=== PATIENT | female | born 1990 | race Caucasian/White ===

== ENCOUNTER 2019-01-21 07:00 | Inpatient (IN) ==
[2019-02-02] MEDS ORDERED: LR 1,000 ML ONE ×2 (05:38→09:19)
[2019-02-02] MEDS ORDERED: KEFZOL 1 GM/D5W 2 GM/100 ML IVPB ONE (05:38)
[2019-02-02] MEDS ORDERED: XYLOCAINE-MPF 2% ONE (06:25)
[2019-02-02] MEDS ORDERED: DECADRON ONE (06:25)
[2019-02-02] MEDS ORDERED: FENTANYL ONE (06:25)
[2019-02-02] MEDS ORDERED: ROBINUL ONE (06:25)
[2019-02-02] MEDS ORDERED: ZOFRAN ONE (06:25)
[2019-02-02] MEDS ORDERED: DIPRIVAN 1% ONE (06:25)
[2019-02-02] MEDS ORDERED: ZEMURON ONE (06:33)
[2019-02-02] MEDS ORDERED: VERSED ONE (06:34)
[2019-02-02] MEDS ORDERED: QUELICIN (DOSE) ONE (06:38)
[2019-02-02 07:47] LABS: URINE SOURCE CATH
[2019-02-02 07:52] LABS: COLOR YELLOW
[2019-02-02 07:53] LABS: BILIRUBIN URINE NEGATIVE (NEGATIVE); BLOOD URINE NEGATIVE (NEGATIVE); GLUCOSE URINE NEGATIVE (NEGATIVE); KETONE URINE NEGATIVE (NEGATIVE); LEUKOCYTES URINE NEGATIVE (NEGATIVE); NITRITE URINE NEGATIVE (NEGATIVE); PH URINE 8.5; PROTEIN URINE TRACE mg/dL (NEGATIVE); SP GRAVITY URINE 1.007; TURBIDITY URINE CLEAR (CLEAR); UROBILINOGEN URINE NORMAL (NORMAL)
[2019-02-02 07:54] LABS: UR EPITHELIAL CELLS <10 /HPF (<10); URINE BACTERIA NEGATIVE /HPF; URINE RBC <10 /HPF (<10); URINE WBC <10 /HPF (<10)
[2019-02-02] MEDS ORDERED: NEOSTIGMINE ONE (08:00)
[2019-02-02] MEDS ORDERED: OFIRMEV 1000 MG/ISOTONIC SOLN 1,000 MG/100 ML BOTTLE ONE (08:11)
[2019-02-02] MEDS ORDERED: NORCO-5 PO PRN (08:56)
[2019-02-02] MEDS ORDERED: ZOFRAN IV PRN ×2 (08:56→09:30)
[2019-02-02] MEDS: DILAUDID ONE ×4 (09:13→09:28)
[2019-02-02] MEDS ORDERED: DILAUDID PCA VIAL ONE (09:19)
[2019-02-02] MEDS ORDERED: NARCAN IV PRN (09:30)
[2019-02-02] MEDS ORDERED: SODIUM CHLORIDE 0.9% INJ PRN (09:30)
[2019-02-02] MEDS ORDERED: DILAUDID PCA VIAL IV PRN (09:30)
[2019-02-02] MEDS ORDERED: PHENERGAN IV PRN (09:30)
[2019-02-02] MEDS ORDERED: PHENERGAN ONE (09:39)
--- NOTE | 2019-02-02 09:52 | OPERATIVE NOTE ---
PROCEDURE DATE: 02/02/2019 PREOP DIAGNOSIS: Menorrhagia and dysmenorrhea unresponsive to medical therapy. POSTOP DIAGNOSIS: Menorrhagia and dysmenorrhea unresponsive to medical therapy. OPERATION: Total abdominal hysterectomy and bilateral salpingectomy. SURGEON: Ita Langston III. LOG TURNER: Ita Silva. ANESTHESIA: General, Dr. Chaudhary. FINDINGS: Normal appearing uterus, tubes, and ovaries. Right hydatid cyst. COMPLICATIONS: None. ESTIMATED BLOOD LOSS: 50 mL. SPECIMENS: Uterus with intact cervix, right and left fallopian tubes. DRAINS: Mandel to straight drain. COUNTS: All counts were correct x3. 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 She has had multiple surgeries and has a GJ tube but when she has her menstrual cycle this creates a great deal of pain, discomfort and nausea that takes her to the emergency room for care with every cycle. She has never had intercourse and never plans on having children and so she has asked after being treated with different medications she has decided to proceed with hysterectomy. Patient counseled about the risks of surgery including bleeding, infection, bowel or bladder injury. DESCRIPTION OF PROCEDURE: The patient was taken to the OR, placed into the supine position. General anesthesia was employed. The patient then prepped and draped in a sterile fashion with placement of Mandel catheter and a Pfannenstiel skin incision was made in the lower abdomen using scalpel. This was taken down sharply to the rectus fascia. A small anjel was made in the rectus fascia and then Olvera scissors were used to extend the incision bilaterally. Then blunt and sharp dissection for the superior and inferior aspects of the rectus fascia were performed. The rectus muscles divided in the midline. Peritoneal layer was entered bluntly and the peritoneal incision was then extended superiorly and inferiorly with care taken to avoid the bladder. At this point in time, the O'Yoshi O'Price retractor was placed in the abdomen and the uterus was elevated using a Sumeet clamp. Then the round ligaments were isolated on both sides with Roberta clamps and then ligated using 0 Vicryl in a transfixing stitch and then the development of the bladder reflection was created using Metzenbaum scissors and a 4 x 4 on a sponge stick. At this point in time, then the fallopian tubes were removed using the ligature. On the right side was noted that there was a hydatid cyst, roughly 2.5 cm, benign in appearance and this was removed along with the right fallopian tube. And then the ligature was used to come across the utero-ovarian ligament bilaterally and good hemostasis was noted. This was then taken down to the level of the uterine artery and then continued dissection of the bladder reflection and straight Endy clamps were then placed across and then this was cut with a scalpel and ligated in a Endy stitch of 0 Vicryl. This was performed on both sides. At this point in time, the curved Endy's were placed across the cervix and then this was dissected out with the scalpel and Pamela scissors and the uterus with intact cervix was removed. Angle stitch was performed with 0 Vicryl in a Endy fashion. This was performed on both sides and then the vaginal cuff was closed with a figure-of- eight of 0 Vicryl. Good hemostasis was noted. Electrocautery was used to obtain hemostasis on the peritoneal edge and then irrigation was performed and good hemostasis was once again noted. At this point in time, the O'Yoshi O'Price retractor was removed and the peritoneal layer was closed using 2-0 chromic in a running fashion x1 and 2 stitches of interrupted 2-0 chromic for reapproximating the rectus muscles. The fascia layer was then closed initially with 0 Vicryl in a running fashion x1 and then the other side was closed with 0 Maxon in a running fashion x1. Subcutaneous layer was irrigated. Electrocautery was used to obtain hemostasis. The skin was reapproximated using angel. Patient tolerated the procedure well was taken recovery room in stable condition. All counts were correct x3. cc: Paulino Fox III, MD
[2019-02-02] MEDS: MYLICON PO SCH ×4 (13:28→20:07)
[2019-02-02] MEDS: PERIDEX MT SCH ×2 (13:29→20:08)
[2019-02-02] MEDS: LR 1,000 ML IV SCH (15:56)
[2019-02-02] MEDS: COLACE PO SCH ×2 (16:52→20:07)
[2019-02-03 05:46] LABS: HEMATOCRIT 31.1 % (37.0-47.0); HEMOGLOBIN 9.7 g/dL (12.0-16.0)
[2019-02-03] MEDS ORDERED: D/C PCA XX ONE (08:53)
[2019-02-03] MEDS ORDERED: ULTRAM PO PRN (08:55)
[2019-02-03] MEDS: PERIDEX MT SCH ×2 (09:05→22:02)
[2019-02-03] MEDS: MYLICON PO SCH ×4 (09:05→22:02)
[2019-02-03] MEDS: COLACE PO SCH ×2 (09:07→22:02)
[2019-02-03] MEDS: PHENERGAN PO PRN ×2 (12:40→22:04)
[2019-02-03] MEDS: NORCO-10 PO PRN ×2 (14:43→22:05)
[2019-02-04] MEDS: LR 1,000 ML IV SCH ×2 (04:34→07:30)
[2019-02-04] MEDS: NORCO-10 PO PRN ×2 (04:34→08:40)
[2019-02-04 08:13] VITALS: BP 111/68
[2019-02-04] MEDS: PERIDEX MT SCH (08:41)
[2019-02-04] MEDS: MYLICON PO SCH (08:44)
--- NOTE | 2019-02-04 19:26 | DISCHARGE SUMMARY ---
ADMISSION DATE: 02/02/2019 DISCHARGE DATE: 02/04/2019 ADMISSION DIAGNOSIS: Severe menorrhagia and dysmenorrhea unresponsive to medical therapy. FINAL DIAGNOSIS: Severe menorrhagia and dysmenorrhea unresponsive to medical therapy. PROCEDURE: Total abdominal hysterectomy with bilateral salpingectomy. BRIEF HISTORY: The patient is a 28-year-old white female, G0, who has had a significant lifetime problem with menstrual cycles. She has tried different methods for controlling her cycles, but nothing has been able to help her in this regard. Usually, when the patient has a cycle, she needs to go to the emergency room for rehydration and treatment of nausea. Patient has never been sexually active due to a number of medical issues and not planning on becoming . She has expressed desire strongly for hysterectomy for treatment of her medical condition. PAST MEDICAL HISTORY: Significant for nutcracker phenomenon as well as superior mesenteric artery syndrome. Posterior orthostatic tachycardic syndrome, median arcuate ligament syndrome and gastroparesis. PAST SURGICAL HISTORY: She has had numerous surgeries involving upper abdomen and has had placement of a GJ tube. She has had coil placed in left kidney vein so that it would not collapse due to the median arcuate ligament syndrome. PAST OB HISTORY/A R SPECIALIST HISTORY: G0. Menarche at age 11. The patient has always had painful and irregular cycles and heavy at times. Had not had any success with medical therapy. The patient has never been sexually active and does not plan on childbearing due to multiple medical conditions. FAMILY HISTORY: Significant for myocardial infarction. REVIEW OF SYSTEMS: All systems reviewed and noncontributory. MEDICATIONS: Tramadol, Zofran, ODT, Phenergan liquid. ALLERGIES: To morphine. SOCIAL HISTORY: Tobacco use none. Alcohol use none. PHYSICAL EXAMINATION: Vital Signs: Height 5 feet 3 inches, weight 97.5 pounds. Temperature 96.7, pulse 107, blood pressure 96/71, respirations 20. HEENT: Pupils equal, round, reactive to light and accommodation. Extraocular movements intact. Oropharynx clear. Neck: Supple. No thyromegaly. Lungs: Clear to auscultation. Heart: Regular rate and rhythm. Abdomen: Upper abdomen with numerous scars from previous surgeries as well as the placement of a GJ tube. The lower abdomen with no significant findings. No mass is palpable. Pelvic: Is limited due to patient's small vaginal orifice. Unable to appreciate any adnexal masses. Did have some mild tenderness on exam. Extremities: No clubbing, cyanosis, or edema noted. Neurologic: Cranial nerves 2-12 grossly intact. Motor 5/5. ASSESSMENT AND PLAN: A 28-year-old, white female, G0, with long-standing history of menorrhagia and dysmenorrhea unresponsive to medical therapy requiring numerous trips to the emergency room when she is on her menses. The patient has a host of medical conditions and even though she has never been sexually active has decided strongly not to bear children and always has adoption as an option. Has requested hysterectomy due to all these underlying factors. Patient has had a significant time to think about her decision and she has acknowledged that this is the path forward for her. Patient counseled about the risks of surgery including bleeding, infection, bowel or bladder injury. HOSPITAL COURSE: The patient had surgery on 02/02/2019 with removal of uterus with intact cervix and bilateral salpingectomy. There was a Hydatid cyst noted on the right fallopian tube. No other pertinent findings in the pelvis. Both ovaries appeared normal. Postoperative course: Patient did well. Was advanced on her diet slowly and after removal of Mandel catheter she was able to void and became ambulatory. On postop day #2, felt she could be discharged home. She exhibited stable vital signs and had active bowels. DISCHARGE PLANS: The patient to be discharged home. Follow up on 02/09/2019 for staple removal. Patient given instructions on lifting precautions for the next 6 weeks. Patient is to continue with her GJ tube feedings and usual regimen of supplements that she uses at home. Will add prescriptions for Albert Lea 10, dispense 30, no refills and Phenergan 25 mg tablets dispensed 20 with 2 refills. cc: Paulino Fox III, MD
== END 2019-02-04 10:55 | disposition home or self-care (01) | DRG 743 ==
LOC: SURHOLD 02-02 04:17 → 4N 02-02 09:09
PROVIDERS: ADMIT Obstetrics & Gynecology; ATTEND Obstetrics & Gynecology
CPT/HCPCS: 81001; 81025; 85014; 85018; 86850; 86900; 86901; 88307; 94761; 94799; A9270; J0131; J0330; J0690; J1100; J1170; J2250; J2405; J2550; J3010; J7120